=== PATIENT | male | born 1985 | race Caucasian/White ===

== ENCOUNTER 2018-12-11 13:51 | Emergency (ER) | payer SELFPAY ==
[~2018-12-11] VITALS: Ht 160 cm; Wt 68.2 kg
--- NOTE | 2018-12-11 13:55 | QN ---
Documentation Comment Patient seen immediately upon arrival as the patient arrived by ambulance. He is complaining of abdominal pain. He will be sent to triage for vital signs and will be seen by another provider. Medical screening exam was initiated. MATTHEW SMITH MD Dec 11, 2018 13:55
[2018-12-11 13:56] VITALS: Ht 160 cm; Wt 68.2 kg
== END 2018-12-11 16:32 | disposition left against medical advice (07) ==
LOC: FTE 13:51
DX: Z53.21 Procedure and treatment not carried out due to patient leaving prior to being seen by health care provider (principal)